=== PATIENT | male | born 2000 | race Caucasian/White ===

== ENCOUNTER 2021-09-18 12:46 | Emergency (ER) | payer MEDICAID ==
[~2021-09-18] VITALS: Ht 170.2 cm; Wt 56.0 kg
[2021-09-18 12:58] VITALS: BP 109/76
== END 2021-09-18 17:29 | disposition left against medical advice (07) ==
LOC: ER 12:46
DX: Z53.21 Procedure and treatment not carried out due to patient leaving prior to being seen by health care provider (principal)
CPT/HCPCS: 93005